=== PATIENT | female | born 1965 | race Two or more races ===

== ENCOUNTER 2025-05-04 08:11 | Emergency (ER) | payer OTHER ==
[~2025-05-04] VITALS: Ht 170.2 cm; Wt 70.3 kg
[2025-05-04] MEDS ORDERED: SYNTHROID50 MCG (08:29)
[2025-05-04] MEDS ORDERED: REPATHA SU140 MG/1 M (08:30)
[2025-05-04] MEDS ORDERED: ATORVASTATIN CA10 MG (08:30)
[2025-05-04] MEDS ORDERED: COZAAR25 MG (08:30)
[2025-05-04] MEDS ORDERED: FAMOTIDINE/PF 20 MG/2 ML VIAL IV STA (08:49)
[2025-05-04] MEDS ORDERED: 0.9 % SODIUM CHLORIDE 1,000 ML IV STA (08:49)
[2025-05-04] MEDS ORDERED: LEVALBUTEROL HCL 0.63 MG/3 ML SOLUTION IH STA (08:50)
[2025-05-04 09:27] LABS: BASO % 0.3 % (0.1-1.2); EOS # 0.10 (0.04-0.54); EOS % 1.4 % (0.7-7.0); LYMPH # 1.34 (1.18-3.74); LYMPH % 18.9 % (19.3-53.1); MEAN PLATELET VOLUME 9.20 fl (9.4-12.4); MONO # 0.86 (0.24-0.82); MONO % 12.1 % (4.7-12.5); NEUT # 4.75 (1.56-6.13); NEUT % 67.2 % (34.0-71.1); RED CELL DISTRIBUTION WIDTH 13.3 % (11.6-14.4)
[2025-05-04 09:29] LABS: ERYTHROCYTE SEDIMENTATION RATE 14 mm/hr (0-30)
[2025-05-04 09:47] LABS: INR 0.94
[2025-05-04 09:51] LABS: ALT/SGPT 38.0 U/L (12-78); AST/SGOT 34.0 U/L (15-37); BILIRUBIN TOTAL 0.4 mg/dL (0.3-1.2); BUN CREA RATIO 6.0 (7.0-25.0); CREATININE SERUM 0.81 mg/dL (0.55-1.02); GFR 72.37; GLOBULINA 4.1 G/DL (2.4-3.5); GLUCOSE FASTING 99.0 mg/dL (65-100); OSMOLALITY SERUM 277.0 MOSM/KG (275-295)
[2025-05-04 10:12] LABS: COVID-19 AG NEGATIVE (NEGATIVE)
[2025-05-04] MEDS ORDERED: MUCINEX DM ER1 EAC1 PO (11:12)
[2025-05-04] MEDS ORDERED: OSEL75CA PO (11:12)
== END 2025-05-04 12:25 | disposition home or self-care (01) ==
LOC: ER 08:11
PROVIDERS: Physician Assistant Medical
DX: J10.1 Influenza due to other identified influenza virus with other respiratory manifestations (principal); Z88.6 Allergy status to analgesic agent; E03.8 Other specified hypothyroidism; N80.8 Other endometriosis; I10 Essential (primary) hypertension; Z20.822 Contact with and (suspected) exposure to COVID-19
CPT/HCPCS: 36415; 94640; 96365; 99283; J3490